=== PATIENT | female | born 1995 | race Caucasian/White ===

== ENCOUNTER 2017-07-28 19:41 | Emergency (ER) | payer OTHER ==
[~2017-07-28] VITALS: Ht 165.1 cm; Wt 65.6 kg
[~2017-07-28 19:41] MED LIST: AMBIEN10 MG PO; KEFLEX500 MG PO; NEXPLANON68 MG SC; ZOFRAN4 MG PO
[2017-07-28 22:19] VITALS: BP 134/85
== END 2017-07-28 22:19 | disposition home or self-care (01) ==
LOC: EME 19:41
DX: F32.9 Major depressive disorder, single episode, unspecified (principal); F41.9 Anxiety disorder, unspecified; J45.909 Unspecified asthma, uncomplicated; Z90.49 Acquired absence of other specified parts of digestive tract
CPT/HCPCS: 90839; 99281; 99285

== ENCOUNTER 2017-07-31 13:28 | Emergency (ER) | payer OTHER ==
[~2017-07-31] VITALS: Ht 165.1 cm; Wt 65.1 kg
[2017-07-31 14:31] LABS: HEMATOCRIT 41.4 % (36.0-46.0); HEMOGLOBIN 14.3 G/DL (11.9-15.5); MCHC 34.5 G/DL (30.0-36.0); MCV 89.6 FL (83-99); PLATELET COUNT 237 K/uL (156-360); RBC DIS.WIDTH-CV 11.6 % (11.8-14.6); RBC DIS.WIDTH-SD 37.6 % (39-53); RED BLOOD COUNT 4.62 M/uL (3.80-5.20)
[2017-07-31 14:48] LABS: CHLORIDE 108 mEq/L (99-109); POTASSIUM 4.3 mEq/L (3.7-5.4); SODIUM 140 mEq/L (136-147)
[2017-07-31 14:50] LABS: GLUCOSE 93 mg/dL (70-99)
[2017-07-31 14:50] LABS: APPEARANCE CLEAR ((CLEAR)); BILIRUBIN NEGATIVE; BLOOD LARGE; COLOR YELLOW ((YELLOW)); GLUCOSE (STRIP) NEGATIVE; KETONES NEGATIVE; LEUKOCYTES NEGATIVE; NITRITE NEGATIVE; PROTEIN (STRIP) 30; SPECIFIC GRAVITY 1.027 (1.000-1.030)
[2017-07-31 14:52] LABS: TOTAL BILIRUBIN 0.6 mg/dL (0.0-1.0)
[2017-07-31 14:54] LABS: ALKALINE PHOSPHATASE 46 IU/L (3-129); CREATININE 0.9 mg/dL (0.6-1.3); GFR ESTIMATE (CALCULATED) > 59 mL/min/
[2017-07-31 14:55] LABS: UREA NITROGEN (BUN) 8 mg/dL (9-23)
[2017-07-31 14:56] LABS: AST (GOT) 16 IU/L (2-34)
[2017-07-31 14:57] LABS: ALT (GPT) 14 IU/L (3-49)
[2017-07-31 14:57] LABS: BACTERIA NONE SEEN /HPF; EPITHELIAL CELLS 1+ /HPF; HYALINE CASTS 0-5 /LPF; MUCUS 1+ /LPF; RED BLOOD CELLS 0-5 /HPF (0-5); UCUL ADDED? NO; WHITE BLOOD CELLS 0-5 /HPF (0-5)
[2017-07-31 15:05] LABS: QUANTITATIVE HCG < 4.0 MIU/ML
[2017-07-31] MEDS ORDERED: ZOFRAN ODT4 MG PO (15:30)
[2017-07-31 15:47] VITALS: BP 130/86
== END 2017-07-31 15:45 | disposition home or self-care (01) ==
LOC: EME 13:28
PROVIDERS: Physician Assistant Medical
DX: R11.2 Nausea with vomiting, unspecified (principal); R10.9 Unspecified abdominal pain; T43.215A Adverse effect of selective serotonin and norepinephrine reuptake inhibitors, initial encounter; J45.909 Unspecified asthma, uncomplicated
CPT/HCPCS: 80053; 81003; 84702; 85027; 99281; 99285